=== PATIENT | female | born 1960 | race Caucasian/White ===

== ENCOUNTER 2017-11-25 12:56 | Emergency (ER) | payer BC, OTHER ==
[2017-11-25 13:04] VITALS: BP 130/81
[2017-11-25] MEDS ORDERED: diPHENhydraMINE IV* 50 MG/ML 1 ml VIAL (BENADRYL) IM ONE (13:08)
[2017-11-25] MEDS ORDERED: methylPREDNISolone 125 MG* 2 ML VIAL IM ONE (13:08)
--- NOTE | 2017-11-25 13:32 | UC ---
Allergic Reaction HPI - HPI Summary HPI Summary: 57 year old with bee sting. Occurred 10 minutes ago. She came here as she states the ED "does nothing" to help her. She has not taken medications. She states previously she had a rash when she had bee sting on the bottom of foot previously. Today it was just above the right eye. She has some swelling in the upper eye lid. No SOB, no wheeze, no CP , no throat closing at the time of presentation . No other concerns. no fever. - History of Current Complaint Chief Complaint: [place]CSkin Stated Complaint: BEE STING Time Seen by Provider: 11/25/17 13:01 Hx Obtained From: Patient Onset/Duration: Sudden Onset Pain Intensity: 0 Associated Signs And Symptoms: Positive: Negative - Related Hx Possible Reaction To: Insect - Allergies/Home Medications Allergies/Adverse Reactions: Allergies Allergy/AdvReac Type Severity Reaction Status Date / Time bee venom protein (honey bee) Allergy Unknown Verified 11/25/17 13:01 Reaction Details Home Medications: Home Medications Aspirin TAB* [Aspirin 325 MG TAB*] 325 mg PO DAILY PRN 11/25/17 [History Confirmed 11/25/17] Naproxen TAB* [Naprosyn 250 mg TAB*] 250 mg PO Q8H PRN 11/25/17 [History Confirmed 11/25/17] PMH/Surg Hx/FS Hx/Imm Hx Previously Healthy: Yes - Surgical History Surgical History: Yes Surgery Procedure, Year, and Place: Hysterectomy, Right Femur - Family History Known Family History: Positive: None - Social History Lives: With Family Alcohol Use: "4 oz daily" Substance Use Type: None Smoking Status (MU): Heavy Every Day Tobacco Smoker Type: Cigarettes Amount Used/How Often: 1 PPD Have You Smoked in the Last Year: Yes Review of Systems Skin: Other - swelling from bee sting on face Is Patient Immunocompromised?: No All Other Systems Reviewed And Are Negative: Yes Physical Exam Triage Information Reviewed: Yes Appearance: Well-Appearing, No Pain Distress, Well-Nourished Vital Signs: Initial Vital Signs Temp 98.1 F 11/25/17 12:58 Pulse 87 11/25/17 12:58 Resp 20 11/25/17 12:58 BP 130/81 11/25/17 12:58 Pulse Ox 95 11/25/17 12:58 Vital Signs Reviewed: Yes Eye Exam: Normal ENT Exam: Normal Neck exam: Normal Neck: Positive: 1 Respiratory Exam: Normal Cardiovascular Exam: Normal Musculoskeletal Exam: Normal Neurological Exam: Normal Psychological Exam: Normal Skin Exam: Normal Skin: Positive: Other - mild swelling upper right eye lid. Re-Evaluation - Re-Evaluation First Eval Change: Unchanged - 1347: She feels fine. Some mild swelling at the left eye as before but not worsened, some pain at the injection site from solumedrol, CTA b/ l and no wheeze , no SOB. she wants to go home and aware if any difficulty breathing / allergic reaction worsen to got o ED . present and aware and agree to plan Allergic Reaction Course/Dx - Course Course Of Treatment: IM benadryl and solumedrol given and patient monitored. no SOB no rash or hives spreading. she requested to go home with Epi pen and if any concerns she will go to ED and give herself the epi. she is aware if epi given we will advise ED for monitoring. - Differential Dx/Diagnosis Differential Diagnosis/HQI/PQRI: Local Allergic Reaction, Urticaria Provider Diagnoses: bee sting face Discharge - Sign-Out/Discharge Documenting (check all that apply): Patient Departure - Discharge Plan Condition: Good Disposition: HOME Prescriptions: EPINEPHrine [Epipen 2-Lemuel] 0.3 mg IJ SEE INSTRUCTIONS #1 [email or web address] Patient Education Materials: Insect Bite or Sting (ED) Referrals: Adela Cunha MD [Primary Care Provider] - 1 Day Additional Instructions: If you develop any shortness of breath please go to seek medical attention . - Billing Disposition and Condition Condition: GOOD Disposition: Home
== END 2017-11-25 13:55 | disposition home or self-care (01) ==
LOC: UCCORT 12:56
DX: T63.441A Toxic effect of venom of bees, accidental (unintentional), initial encounter (principal); R22.0 Localized swelling, mass and lump, head; Y92.9 Unspecified place or not applicable; Z91.030 Bee allergy status; F17.210 Nicotine dependence, cigarettes, uncomplicated
CPT/HCPCS: 96372; 99212; G0463; J1200; J2930